=== PATIENT | female | born 1985 | race Caucasian/White ===

== ENCOUNTER → 2019-03-16 | Outpatient (CLI) | payer OTHER ==
--- NOTE | 2019-03-16 16:55 | KCIC ---
EXAM: Bilateral lower extremity venous reflux exam. HISTORY: Venous insufficiency. TECHNIQUE: Sonographic imaging of the lower extremity veins was performed. COMPARISON: None. FINDINGS: There is bilateral greater saphenous vein reflux from the inguinal region to the ankle. There are large varicose veins branching from the greater saphenous veins within the mid to distal thighs and within the right calf. The right greater saphenous vein measures 11.8 mm with 1.8 seconds reflux within the proximal thigh, 8.2 mm with 1.5 seconds reflux within the mid thigh, 5.5 mm with 1.7 seconds reflux within the distal thigh, 6.0 mm with 3.6 seconds reflux at the level of the knee, 4.9 mm with 5.7 seconds reflux within the proximal calf, 3.1 mm with 2.0 seconds reflux within the mid calf, and 2.9 mm with 2.6 seconds reflux within the distal calf. The left greater saphenous vein measures 10.0 mm with 3.3 seconds reflux within the proximal thigh, 13.2 mm with 5.0 seconds reflux within the mid thigh, 7.2 mm with 4.0 seconds reflux within the distal thigh, 10.0 and then with 3.8 seconds reflux at the level of the knee, 8.5 mm with 4.0 seconds reflux within the proximal calf, 3.7 mm with 2.8 seconds reflux within the mid calf, and 3.2 mm with 2.3 seconds reflux within the distal calf. The right lesser saphenous vein measures 4.4 mm within the proximal calf, 4.5 and within the mid calf and 5.2 mm within the distal calf. The left lesser saphenous vein measures 2.1 mm within the proximal calf, 2.6 mm within the mid calf and 2.3 mm within the distal calf. There is no reflux involving the lesser saphenous veins. IMPRESSION: 1. Bilateral greater saphenous vein and lesser saphenous vein caliber measurements, described above. 2. Bilateral greater saphenous vein reflux from the proximal thighs to the ankles, described above. 3. Bilateral varicose veins branching from the greater saphenous veins within the mid to distal thighs and within the right calf. Electronically signed by: Jennifer Gaines MD (03/16/2019 4:52 PM) [id number]
== END | disposition home or self-care (01) ==
LOC: KCIC US 12:19
DX: I87.2 Venous insufficiency (chronic) (peripheral) (principal); I87.303 Chronic venous hypertension (idiopathic) without complications of bilateral lower extremity
CPT/HCPCS: 93970